=== PATIENT | female | born 1995 | race Caucasian/White ===

== ENCOUNTER 2022-03-08 10:49 | Emergency (ER) | payer BC, MEDICAID ==
[~2022-03-08] VITALS: Ht 157.5 cm; Wt 61.8 kg
[2022-03-08 11:50] VITALS: BP 132/81
== END 2022-03-08 15:03 | disposition home or self-care (01) ==
LOC: ER 10:50
DX: K64.8 Other hemorrhoids (principal)
CPT/HCPCS: 99282

== ENCOUNTER 2022-03-11 09:14 | Emergency (ER) | payer BC, MEDICAID ==
[~2022-03-11] VITALS: Ht 157.5 cm; Wt 61.4 kg
[2022-03-11 09:28] VITALS: BP 139/83
[2022-03-11] MEDS ORDERED: normal saline 1000ML IV soln IVB ONE (11:15)
[2022-03-11] MEDS ORDERED: bisacodyl 10mg suppository rectal RC ONE (11:15)
[2022-03-11] MEDS ORDERED: ondansetron 4mg rapidly disintigrating tab PO ONE (13:15)
--- NOTE | 2022-03-11 13:15 | NUR ---
Rectal exam chaperoned by rojas [email or web address]
[2022-03-11] MEDS ORDERED: ONDA4TAB12 PO (13:16)
== END 2022-03-11 13:58 | disposition home or self-care (01) ==
LOC: ER 09:14
DX: K59.00 Constipation, unspecified (principal); K64.4 Residual hemorrhoidal skin tags; R10.84 Generalized abdominal pain; R11.0 Nausea; Z79.899 Other long term (current) drug therapy
CPT/HCPCS: 74018; 96360; 99283; J7030